=== PATIENT | female | born 1940 | race Caucasian/White ===

== ENCOUNTER 2018-12-04 19:58 | Emergency (ER) | payer MEDICARE ==
[~2018-12-04] VITALS: Ht 175.3 cm; Wt 59.0 kg
[~2018-12-04 19:58] MED LIST: Z ARMOUR THYROID PO
[2018-12-04] MEDS ORDERED: HYDROCODONE/APAP 5MG-325MG TAB ONE (20:41)
[2018-12-04] MEDS ORDERED: HYDROCODONE/APAP 10MG-325MG TAB PO ONE (20:45)
[2018-12-04] MEDS ORDERED: ACETAMINOPHEN/CODEINE 300MG - 30MG TAB PO ONE (20:45)
[2018-12-04] MEDS ORDERED: HYDROCODONE/APAP 5MG-325MG TAB PO ONE (20:45)
[2018-12-04 22:14] VITALS: BP 140/72
--- NOTE | 2018-12-04 22:17 | Diagnostic Imaging Report ---
Examination: Single AP view of the chest. COMPARISON: None. INDICATION: Status post fall IMPRESSION: 1. Lines and Tubes: Left upper chest multilead cardiac device, with distal tips projecting in the right atrium and right ventricle. 2. Lungs are grossly clear. No consolidation or effusion. 3. Cardiomediastinal silhouette is normal. Pulmonary vasculature is normal. 4. Please see dedicated right shoulder films for description of shoulder fracture. Other bony structures are intact. Signed by: Dr. Franklin Baron M.D. on 12/04/2018 10:14 PM
--- NOTE | 2018-12-04 22:18 | Diagnostic Imaging Report ---
EXAMINATION: Right shoulder series. CLINICAL HISTORY: Status post fall. COMPARISON: None. . Discussion: Generalized osteopenia, which limits evaluation of bony structures. Acute, comminuted fracture of the proximal right humerus, involving the surgical neck and greater tuberosity (three-part), with minimal displacement. The humeral head remains aligned with the glenoid.. No osteolytic or osteoblastic lesions. There is no evidence of a.c. separation. Mild degenerative changes of the glenohumeral joint. The soft tissues are normal. IMPRESSION: 1. Acute, comminuted three-part fracture of the proximal right humerus involving the surgical neck and greater tuberosity, with minimal displacement.. Signed by: Dr. Franklin Baron M.D. on 12/04/2018 10:15 PM
--- NOTE | 2018-12-04 22:20 | Diagnostic Imaging Report ---
Exam: Right elbow, 2 views History: Fall Comparison: None. Findings: There is decreased bone mineralization. No acute, displaced fracture or dislocation. Minimal degenerative changes in the elbow joint. No anterior or posterior fat pad elevation. No abnormal soft tissue calcification or soft tissue defect. No soft tissue swelling. Impression: 1. Decreased bone mineralization limits evaluation of the bony structures. No acute abnormalities, within the limitations of the study.. Signed by: Dr. Franklin Baron M.D. on 12/04/2018 10:16 PM
--- NOTE | 2018-12-04 22:21 | Diagnostic Imaging Report ---
Exam: Right humerus, 2 views History: Fall Comparison: None. Findings: Generalized osteopenia, which limits evaluation of bony structures. Acute, comminuted fracture of the proximal right humerus, involving the surgical neck and greater tuberosity (three-part), with minimal displacement. The humeral head remains aligned with the glenoid.. Resolution bony structures are intact. Mild degenerative changes in the glenohumeral joint. No abnormal soft tissue calcification or soft tissue defect. No soft tissue swelling. Impression: 1. Acute, comminuted fracture of the proximal right humerus, involving the surgical neck and greater tuberosity (three-part), with minimal displacement. Signed by: Dr. Franklin Baron M.D. on 12/04/2018 10:18 PM
== END 2018-12-04 22:24 | disposition home or self-care (01) ==
LOC: ER 19:58
DX: S42.251A Displaced fracture of greater tuberosity of right humerus, initial encounter for closed fracture (principal); W01.0XXA Fall on same level from slipping, tripping and stumbling without subsequent striking against object, initial encounter; Y93.01 Activity, walking, marching and hiking; Y92.008 Other place in unspecified non-institutional (private) residence as the place of occurrence of the external cause
CPT/HCPCS: 71045; 99283

== ENCOUNTER 2019-02-06 10:46 | Observation (INO) | payer MEDICARE ==
[~2019-02-06] VITALS: Ht 177.8 cm; Wt 59.0 kg
--- OUTSIDE RECORDS SUMMARY | 2019-02-06 10:49 | XMS REPORT ---
Author Author [facility] Address Unknown Phone Unavailable Care Team Providers Care Laborer Shaft [place]inking Name Role Phone Eddie GARCIA Unavailable Unavailable Problems This patient has no known problems. Allergies, Adverse Reactions, Alerts This patient has no known allergies or adverse reactions. Medications This patient has no known medications. Results Test Description Test Time Test Comments Text Results Atomic Results Result Comments HUMERUS RIGHT 2+VIEWS 2018-12-04 22:16:00 [place] [address] Patient Name: STEPHEN HOLLINGSWORTH MR #: [id number] : 1940 Age/Sex: 78/F Req #: [id number] Adm Physician: Ordered by: HORTENSIA TAO GRANULAR OPERATOR Report #: [id number] Location: ER Room/Bed: Procedure: [id number] DX/HUMERUS RIGHT 2+VIEWS Exam Date: 12/04/18 Exam Time: 2119 REPORT STATUS: Signed Exam: Right humerus, 2 views History: Fall Comparison: None. Findings: Generalized osteopenia, which limits evaluation of bony structures. Acute, comminuted fracture of the proximal right humerus, involving the surgical neck and greater tuberosity (three- part), with minimal displacement. The humeral head remains aligned with the glenoid.. Resolution bony structures are intact. Mild degenerative changes in the glenohumeral joint. No abnormal soft tissue calcification or soft tissue defect. No soft tissue swelling. Impression: 1. Acute, comminuted fracture of the proximal right humerus, involving the surgical neck and greater tuberosity (three-part), with minimal displacement. Signed by: Dr. Kortney Baron M.D. on 12/04/2018 10:18 PM Dictated By: KORTNEY BARON MD 17 Transcribed By: SHEREE on 12/04/182217 COPY TO: HORTENSIA TAO NP ELBOW RIGHT COMPLETE 2018-12-04 22:15:00 [place] [address] Patient Name: STEPHEN HOLLINGSWORTH MR #: [id number] : 1940 Age/Sex: 78/F Req #: [id number] Adm Physician: Ordered by: HORTENSIA TAO NP Report #: [id number] Location: ER Room/Bed: Procedure: [id number] DX/ELBOW RIGHT COMPLETE Exam Date: 12/04/18 Exam Time: 2119 REPORT STATUS: Signed Exam: Right elbow, 2 views History: Fall Comparison: None. Findings: There is decreased bone mineralization. No acute, displaced fracture or dislocation. Minimal degenerative changes in the elbow joint. No anterior or posterior fat pad elevation. No abnormal soft tissue calcification or soft tissue defect. No soft tissue swelling. Impression: 1. Decreased bone mineralization limits evaluation of the bony structures. No acute abnormalities, within the limitations of the study.. Signed by: Dr. Kortney Baron M.D. on 12/04/2018 10:16 PM Dictated By: KORTNEY BARON MD 15 Transcribed By: SHEREE on 12/04/182215 COPY TO: HORTENSIA TAO NP SHOULDER RIGHT COMPLETE 2018-12-04 22:14:00 [facility] [address] [place] [address] Patient Name: STEPHEN HOLLINGSWORTH MR #: [id number] : 1940 Age/Sex: 78/F Req #: [id number] Adm Physician: Ordered by: HORTENSIA TAO NP Report #: [id number] Location: ER Room/Bed: Procedure: [id number] DX/SHOULDER RIGHT COMPLETE Exam Date: 12/04/18 Exam Time: 2119 REPORT STATUS: Signed EXAMINATION: Right shoulder series. CLINICAL HISTORY: Status post fall. COMPARISON: None. . Discussion: Generalized osteopenia, which limits evaluation of bony structures. Acute, comminuted fracture of the proximal right humerus, involving the surgical neck and greater tuberosity (three-part), with minimal displacement. The humeral head remains aligned with the glenoid.. No osteolytic or osteoblastic lesions. There is no evidence of a.c. separation. Mild degenerative changes of the glenohumeral joint. The soft tissues are normal. IMPRESSION: 1. Acute, comminuted three-part fracture of the proximal right humerus involving the surgical neck and greater tuberosity, with minimal displacement.. Signed by: Dr. Kortney Baron M.D. on 12/04/2018 10:15 PM Dictated By: KORTNEY BARON MD 14 Transcribed By: SHEREE on 12/04/182214 COPY TO: HORTENSIA TAO NP CHEST SINGLE (NOT PORTABLE) 2018-12-04 22:12:00 [facility] [address] [place] [address] Patient Name: STEPHEN HOLLINGSWORTH MR #: [id number] : 1940 Age/Sex: 78/F Req #: [id number] [facility] Physician: Ordered by: HORTENSIA TAO NP Report #: [id number] Location: ER Room/Bed: Procedure: [id number] DX/CHEST SINGLE (NOT PORTABLE) Exam Date: 12/04/18 Exam Time: 2119 REPORT STATUS: Signed Examination: Single AP view of the chest. CO MPARISON: None. INDICATION: Status post fall IMPRESSION: 1. Lines and Tubes: Left upper chest multilead cardiac device, with distal tips projecting in the right atrium and right ventricle. 2. Lungs are grossly clear. No consolidation or effusion. 3. Cardiomediastinal silhouette is normal. Pulmonary vasculature is normal. 4. Please see dedicated right shoulder films for description of shoulder fracture. Other bony structures are intact. Signed by: Dr. Kortney Baron M.D. on 12/04/2018 10:14 PM Dictated By: KORTNEY BARON MD 13 Transcribed By: SHEREE on 12/04/182213 COPY TO: HORTENSIA TAO NP
[2019-02-06 11:37] LABS: BASOPHILS % 0.4 % (0.0-1.0); EOSINOPHILS # (AUTO) 0.1 (0.0-0.4); EOSINOPHILS % 1.7 % (0.0-6.0); HEMATOCRIT 43.8 % (34.2-44.1); LYMPHOCYTES # (AUTO) 1.1 (1.0-3.2); LYMPHOCYTES % 13.7 % (18.0-39.1); MEAN CORPUSCULAR HEMOGLOBIN 30.1 pg (28-32); MEAN CORPUSCULAR VOLUME 94.2 fL (81-99); MONOCYTES # (AUTO) 0.5 (0.2-0.8); MONOCYTES % 5.6 % (4.4-11.3); NEUTROPHILS # (AUTO) 6.3 (2.1-6.9); NEUTROPHILS % 78.1 % (38.7-80.0); PLATELET COUNT 215 x10e3/uL (140-360); RED BLOOD COUNT 4.65 x10e6/uL (3.6-5.1); RED CELL DISTRIBUTION WIDTH 13.9 % (11.7-14.4)
--- NOTE | 2019-02-06 11:38 | Diagnostic Imaging Report ---
History:Dizziness Comparison studies: None Technique: Axial images were obtained from the skull base to the vertex. Coronal and sagittal images reconstructed from the axial data. Dose modulation, iterative reconstruction, and/or weight based adjustment of the mA/kV was utilized to reduce the radiation dose to as low as reasonably achievable. Intravenous contrast: None Findings: Scalp/skull: No abnormalities. Extra-axial spaces: No masses. No fluid collections. Brain sulci: Mildly prominent. Ventricles: Mild compensatory dilatation. No hydrocephalus. Parenchyma: Subtle hypodensities in the supratentorial white matter are small vessel ischemic changes. No masses, hemorrhage, acute or chronic cortical vascular insults. Sellar/suprasellar region: No abnormalities. Craniocervical junction: Patent foramen magnum. No Chiari one malformation. Incidental findings: Atherosclerotic calcifications in the carotid siphons . Impression: No acute abnormalities. Chronic findings: 1. Mild generalized volume loss. 2. Mild supratentorial white matter small vessel ischemic changes. Signed by: Dr. Chriss Hutchison M.D. on 02/06/2019 11:35 AM
[2019-02-06 11:51] LABS: ALBUMIN 3.9 g/dL (3.5-5.0); ALBUMIN/GLOBULIN RATIO 1.4 (0.8-2.0); ANION GAP 13.8 mmol/L (8-16); CREATININE, SERUM 1.07 mg/dL (0.57-1.11); POTASSIUM 3.8 mmol/L (3.5-5.1)
[2019-02-06 12:00] LABS: CREATINE KINASE MB 1.7 ng/mL (0-5.0); INR 0.92; PROTHROMBIN TIME 12.8 seconds (11.9-14.5)
[2019-02-06 12:01] LABS: PARTIAL THROMBOPLASTIN TIME 26.2 seconds (23.8-35.5)
[2019-02-06 12:04] LABS: BILIRUBIN,URINE NEGATIVE (NEGATIVE); CLARITY,URINE CLEAR (CLEAR); COLOR,URINE YELLOW (YELLOW); KETONES,URINE NEGATIVE (NEGATIVE); LEUKOCYTE ESTERASE ,URINE NEGATIVE (NEGATIVE); NITRITE,URINE NEGATIVE (NEGATIVE); PROTEIN,URINE DIPSTICK NEGATIVE (NEGATIVE); URINE UROBILINOGEN 0.2 mg/dL (0.2 - 1)
[2019-02-06 12:11] LABS: AMPHETAMINES SCREEN,URINE NEGATIVE (NEGATIVE); BENZODIAZEPINES SCREEN,URINE NEGATIVE (NEGATIVE); PHENCYCLIDINE SCREEN,URINE NEGATIVE (NEGATIVE)
[2019-02-06 12:22] LABS: AMORPHOUS SEDIMENT,URINE MANY (FEW); BACTERIA,URINE MODERATE /HPF; EPITHELIAL CELLS,URINE FEW /LPF; RBC,URINE 0-5 /HPF (0-5); WBC,URINE (MAN) 0-5 /HPF (0-5)
[2019-02-06] MEDS ORDERED: SODIUM CHLORIDE 0.9% 1000ML 1,000 ML IV ONE (12:30)
[2019-02-06] MEDS: ONDANSETRON HCL INJ 2MG/ML 2ML 2 MG/ML VIAL IV PRN (12:49)
[2019-02-06] MEDS ORDERED: ASPIRIN 325 MG TAB EC PO ONE (13:00)
--- NOTE | 2019-02-06 16:53 | NUR ---
received to rm [id number] no distress noted, updated on poc voiced understanding, pt ambulated to bathroom and back to bed with assistance,r fa 20g no ss of infiltration noted, r arm sling noted (per patient arm was fx x 2 months ago tripped by a dog), no other co voiced, bed low/locked position, call light in reach will continue to monitor
[2019-02-06 17:03] VITALS: BP 181/95
[2019-02-06] MEDS ORDERED: NEBIVOLOL (17:33)
[2019-02-06] MEDS ORDERED: TYLENOL WITH C1 EACH PO (17:33)
[2019-02-06] MEDS ORDERED: ATIVAN0.5 MG PO (17:33)
[2019-02-06] MEDS ORDERED: ASPIR 8181 MG PO (17:33)
[2019-02-06 17:44] VITALS: BP 149/75
[2019-02-06 17:52] VITALS: BP 149/75
[2019-02-06] MEDS: ACETAMINOPHEN/CODEINE 300MG - 30MG TAB PO PRN (18:43)
[2019-02-06 19:52] LABS: CREATINE KINASE MB 1.5 ng/mL (0-5.0)
[2019-02-06 20:00] VITALS: BP 157/65
--- NOTE | 2019-02-06 20:00 | NUR ---
INITIAL ASSESSMENT COMPLETE, RIGHT ARM UP IN SLING, PT HERE FOR CONFUSION AND POSSIBLE TIA BUT ARM IS WHAT IS BOTHERING HER THE MOST, VS STABLE, CALL LIGHT IN REACH, NO OTHER NEEDS, ORIENTED TO PLACE, TIME AND PERSON
[2019-02-07] VITALS (8 sets, daily range): BP systolic 136–177; BP diastolic 67–94
[2019-02-07] MEDS: ACETAMINOPHEN/CODEINE 300MG - 30MG TAB PO PRN ×3 (02:07→13:25)
[2019-02-07] MEDS ORDERED: LORAZEPAM 0.5 MG TAB PO PRN (06:00)
--- NOTE | 2019-02-07 06:01 | NUR ---
H7P cc: difficulty speaking HPI: 78yoF, PCP , developed difficulty speaking and difficulty with memory. No focal weakness. Pt did fall in November with resulting right arm injury now in sling. PMH: HTN, CAD s/p stent x2 in 2012, right arm fracture in 11/2018, Elderly fall PSHx: appendectomy, , tubal ligation, coronary stent ALleriges; see emr FH/SH; single; no cigs; lives alone Meds; see MAR ROS; no cp/sob/dizziness/vision changes/skin rash/back pain/N/V/D/mood change v/s revd PE tired anicteric ns1s2 mod bs soft nt nd no e/t skin dry n. affect labs/meds revd A/P: 78yoF CANDELARIO TIA UTI Hypothyroidism Physical deconditionig PLAN Unable to get MRI; check CTA brain; Treat UTI with IV abx IVF ASA/lipid panel SCD/pepcid PT consult Dispo: d/w son by telephone. Treat UTI; rehydrate; f/u CTA. Kam Connell MD, PhD.
[2019-02-07 06:14] LABS: BASOPHILS % 0.3 % (0.0-1.0); EOSINOPHILS # (AUTO) 0.2 (0.0-0.4); EOSINOPHILS % 2.3 % (0.0-6.0); HEMATOCRIT 37.7 % (34.2-44.1); HEMOGLOBIN 11.9 g/dL (12.0-16.0); LYMPHOCYTES # (AUTO) 2.2 (1.0-3.2); LYMPHOCYTES % 27.7 % (18.0-39.1); MEAN CORPUSCULAR HEMOGLOBIN 30.1 pg (28-32); MEAN CORPUSCULAR HGB CONC 31.6 g/dL (31-35); MEAN CORPUSCULAR VOLUME 95.4 fL (81-99); MONOCYTES # (AUTO) 0.8 (0.2-0.8); MONOCYTES % 10.6 % (4.4-11.3); NEUTROPHILS # (AUTO) 4.6 (2.1-6.9); NEUTROPHILS % 58.8 % (38.7-80.0); PLATELET COUNT 200 x10e3/uL (140-360); RED BLOOD COUNT 3.95 x10e6/uL (3.6-5.1); RED CELL DISTRIBUTION WIDTH 13.7 % (11.7-14.4)
[2019-02-07] MEDS ORDERED: SODIUM CHLORIDE 0.45% 1,000 ML IV ONE (06:15)
[2019-02-07] MEDS: THYROID 60 MG TAB PO SCH (06:16)
[2019-02-07 06:49] LABS: CREATINE KINASE 23 IU/L (29-168)
--- NOTE | 2019-02-07 07:06 | NUR ---
Received patient lying in bed with eyes open. Respiration even and unlabored without SOB. Call light in reach.
[2019-02-07 07:20] LABS: ALANINE AMINOTRANSFERASE 18 IU/L (0-55); ALBUMIN 3.2 g/dL (3.5-5.0); ALBUMIN/GLOBULIN RATIO 1.3 (0.8-2.0); ALKALINE PHOSPHATASE 79 IU/L (40-150); BLOOD UREA NITROGEN 25 mg/dL (7-26); BUN/CREATININE RATIO 31 (6-25); CALCIUM 9.1 mg/dL (8.4-10.2); CARBON DIOXIDE 27 mmol/L (22-29); CHLORIDE 107 mmol/L (98-107); EST GLOMERULAR FILTRATION RATE > 60 ML/MIN (60-); GLUCOSE 89 mg/dL (74-118); SODIUM 142 mmol/L (136-145)
[2019-02-07 07:36] LABS: CHOL/HDL RATIO 6.1 (3.0-3.6)
[2019-02-07] MEDS: FAMOTIDINE 20 MG TAB PO SCH ×2 (07:50→17:37)
[2019-02-07] MEDS: ASPIRIN 81 MG ENTERIC COATED PO SCH (07:51)
[2019-02-07] MEDS: CEFTRIAXONE SOD 1 GM/NS 50 ML 50 ML IV SCH (07:51)
--- NOTE | 2019-02-07 11:15 | NUR ---
ASSESSMENT: Spiritual concern Pt frustrated in communicating. Pt struggled to come up with words she wanted to say. Pt states family has been supportive. Intervention: Provided unhurried empathic listening. Provided information on how to reach baseball pitcher, if needed. Outcome: Pt expressed appreciation for visit. MORA DOE Administrative Dietitian Spiritual Care Department O: [phone] Pager: [phone] ([phone] number calling from)
[2019-02-07] MEDS ORDERED: SODIUM CHLORIDE 0.9% 100 ML ONE (14:30)
[2019-02-07] MEDS ORDERED: IOPAMIDOL 370 MG/ML 200 ML INFUS..BTL INJ ONE (14:31)
--- NOTE | 2019-02-07 14:50 | NUR ---
Notified Dr. Connell about CTA brain unabled to get done because of poor peripheral vein acces. Ordered given to insert PICC line.
--- NOTE | 2019-02-07 17:02 | NUR ---
Patient is transported for CTA brain at this time.
--- NOTE | 2019-02-07 18:27 | Diagnostic Imaging Report ---
CTA BRAIN HISTORY: Confusion COMPARISON: Head CT 02/06/2019 TECHNIQUE: CTA of the head was performed with intravenous iodine based contrast. Coronal, sagittal, and 3-D reformations were created. One or more of the following dose reduction techniques were used: Automated exposure control, adjustment of the mA and/or kV according to patient size, and/or utilization of iterative reconstruction technique. DISCUSSION: Carotid arteries: Minimal bilateral carotid siphon calcifications are present without significant stenosis. Moderate to severe focal stenosis in the left middle cerebral artery distal M1 segment (at the bifurcation) is age indeterminate. There is subtle, asymmetric decreased filling of the distal left middle cerebral artery branches. Collateral vessels are seen along the bilateral cerebral convexities. No abnormalities in the bilateral A1 or right M1 segments. Vertebrobasilar Circulation: Right vertebral artery: Patent, no abnormalities. Left vertebral artery: Patent, no abnormalities. Basilar artery: Patent, no abnormalities. Posterior cerebral arteries: Patent, no abnormalities. Normal Variants: ACom: Patent. PComs: Not visualized. Vertebral arteries: Co-dominant. The major dural venous sinuses are grossly patent. Additional findings: Bilateral ocular lens replacement. Subtle, focal asymmetric hypodensity in the left centrum semiovale may be due to age indeterminate watershed ischemia. IMPRESSION: 1. 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 There is subtle, asymmetric decreased filling of the distal left middle cerebral artery branches. Collateral vessels are seen along the bilateral cerebral convexities. 2. Minimal bilateral carotid siphon calcification without significant stenosis. 3. No other intracranial CTA abnormalities. 4. Subtle, focal asymmetric hypodensity in the left centrum semiovale may be due to age indeterminate watershed ischemia. Signed by: Dr. Francisco Montano M.D. on 02/07/2019 6:24 PM
--- NOTE | 2019-02-07 19:15 | NUR ---
Report given to night nurse. Respiration even and unlabored without SOB. Call light in reach. Family members at bedside.
[2019-02-07] MEDS ORDERED: ATORVASTATIN 40 MG TAB PO SCH (21:00)
[2019-02-07] MEDS ORDERED: ATORVASTATIN 20 MG TAB PO SCH (21:00)
[2019-02-07] MEDS ORDERED: ASPIRIN 81 MG CHEW TAB PO SCH (21:00)
--- NOTE | 2019-02-07 21:36 | NUR ---
Patient refused bed alarm on, side rails up and SCD's applied.
[2019-02-08] VITALS: BP 164/70
--- NOTE | 2019-02-08 00:19 | Consultation ---
DATE OF CONSULTATION: 02/07/2019 Neurology Consult Note HISTORY OF PRESENT ILLNESS: Ms. Alejandre is an 78-year-old right-hand dominant woman with past medical history significant for hypertension and coronary artery disease, admitted to [facility] under observation status on February 06, 2019, with symptoms suspicious for a stroke. The patient awoke at 0800 on the day of admission with dysarthria and expressive aphasia. Ms. Alejandre does not report a visual field cut or other disturbance, receptive aphasia, facial droop, hemiparesis, or hemihypesthesia associated with the above symptoms. The patient does report poor balance and impairment of gait, but these appear to be chronic. Ms. Alejandre does report dizziness, which cannot be further described and mild confusion associated with the above symptoms as well. On the morning of admission, the patient's eldest son arrived at her home to take her to [employer]. After hearing his mother's speak, he brought her to the emergency center at [facility] for further evaluation of her symptoms. Upon arrival in the emergency center, the patient was afebrile with a blood pressure of 182/82 mmHg and a pulse of 75 beats per minute. The patient's neurological examination was reportedly nonfocal. According to both the patient and her son, Ms. Alejandre's symptoms improved while in the emergency center, but subsequently worsened once again after a few hours. While in the emergency center, Ms. Alejandre underwent a CT of the brain without contrast, which did not show evidence of recent large territorial ischemia or hemorrhage. Ms. Alejandre was subsequently admitted to [facility] under observation status for further evaluation and treatment of her symptoms. Ms. Alejandre does not report experiencing similar symptoms previously. She does not report a severe headache associated with the above symptoms. Ms. Alejandre does endorse compliance with her home medication of aspirin 81 mg by mouth daily. REVIEW OF SYSTEMS: Confusion, dysarthria, expressive aphasia, impairment of balance and gait, and dizziness. Otherwise, a 12-point review of systems is negative. PAST MEDICAL HISTORY: Hypertension, coronary artery disease, thyroid disease, anxiety disorder, and symptomatic bradycardia. PAST SURGICAL HISTORY: Cardiac catheterization with stent placement x2, pacemaker placement, tonsillectomy, appendectomy/ section, total hysterectomy, and bilateral cataract removal. PAST HOSPITALIZATIONS: Surgeries/procedures as listed, childbirth x4. FAMILY MEDICAL HISTORY: The patient's father is from coronary artery disease. Ms. Alejandre's mother is from a ruptured abdominal aneurysm. Ms. Alejandre has three siblings, two brothers and one sister. One brother is . His only known history was diabetes mellitus. One brother is alive and has chronic obstructive pulmonary disease. The patient's sister is alive and has diabetes mellitus with end-stage renal disease. Ms. Alejandre has four sons, all of whom are alive and healthy. SOCIAL HISTORY: Ms. Alejandre is a . She is retired. The patient does not report current or prior tobacco, alcohol, or recreational drug use. HOME MEDICATIONS: Aspirin 81 mg by mouth daily, Bystolic 5 mg by mouth as needed for tachycardia, [place] Thyroid 180 mg by mouth daily, lorazepam 0.5 mg by mouth twice daily as needed for anxiety, acetaminophen with codeine 300 mg by mouth every 4 hours as needed for pain. HOSPITAL MEDICATIONS: Tylenol No. 3, ceftriaxone, Pepcid, lorazepam, Zofran, thyroid medication, and aspirin. ALLERGIES: NO KNOWN DRUG ALLERGIES. NO KNOWN FOOD ALLERGIES. NO KNOWN ALLERGIES TO LATEX. NO KNOWN ALLERGIES TO IODINE OR OTHER CONTRAST MATERIALS. PHYSICAL EXAMINATION: VITAL SIGNS: Height 70 inches, weight 130 pounds, BMI 18.7 kg/m2, blood pressure 155/75 mmHg, pulse 64 beats per minute, respiratory rate 18 breaths per minute, and oxygen saturation 98% on room air. GENERAL: The patient is awake and alert, does not appear distressed. Normal body habitus. HEENT: Normocephalic, atraumatic. Pupils are surgical. Moist mucous membranes. NECK: Supple. No appreciable thyromegaly. No appreciable carotid bruits. CARDIOVASCULAR: S1, S2, regular rate and rhythm. No murmurs, rubs, or gallops. RESPIRATORY: Clear to auscultation bilaterally. No wheezes, rhonchi, or rales. EXTREMITIES: Skin is warm and dry. No clubbing, cyanosis, or edema. The posterior tibial and dorsalis pedis pulses are 2+ and symmetric. The right arm is in a sling. SKIN: The patient has multiple ecchymoses and abrasions over both arms and both legs. NEUROLOGIC: Memory/Attention: The patient is awake and alert, oriented to person, place, time, and situation. Cranial Nerves: Cranial nerve I - not tested. Cranial nerve II, III, IV, and - pupils are surgical. Extraocular movements are intact. No nystagmus. Cranial nerve V - sensation is intact to light touch and pinprick over the bilateral V1 through V3 distributions. Strength of the masseter and temporalis muscles are within normal limits. Cranial nerve VII - the face is subtly asymmetric on the right, but facial movements are not. Strength appears to be within normal limits. Cranial nerve VIII - hearing is diminished to finger rub bilaterally. Cranial nerve IX, X - the soft palate elevates equally and symmetrically. Cranial nerve XI - normal strength of the bilateral sternocleidomastoid and trapezius muscles. Cranial nerve XII - the tongue protrudes midline and moves symmetrically from [id number]-[id number]. Strength: Bulk is normal. Strength is 5/5 in the left deltoid, biceps, triceps, wrist flexors and extensors, finger flexors and extensors, intrinsic hand muscles, bilateral hip flexors, knee flexors and extensors, ankle dorsiflexion and plantar flexion, and intrinsic foot muscles. Right arm flexors are 4+/5. Right arm extensors are 4/5. Tone is normal. DTRs: Deep tendon reflexes are 2+ and symmetric at the triceps, biceps, brachioradialis, and patellas. Deep tendon reflexes are absent and symmetric at the Achilles. Plantar responses are flexor bilaterally. Sensation: Sensation is intact to light touch and pinprick in both arms and both legs. Cerebellar: Xitwbo-lmdy-vvyvvk and heel-bishop movements are intact without dysmetria or other impairment except as follows: The right arm cannot be assessed secondary to pain. Gait: Deferred. Speech: Spontaneous speech is moderately dysarthric with moderate expressive aphasia. Receptive aphasia is not appreciated; the patient consistently follows simple and complex commands. Repetition is intact. Positive word substitution. Involuntary movements: None. Pronator Drift: As per motor exam. LABORATORY DATA: The most recent comprehensive metabolic panel is significant for a total protein of 5.6 and albumin of 3.2. Cardiac enzymes are negative x3. Total cholesterol 183, triglycerides 159, LDL cholesterol 121, and HDL cholesterol 30. The CBC with differential and platelets reveals a white blood cell count of 7.80 with a normal differential. The hemoglobin and hematocrit are 11.9 and 37.7, respectively. The platelet count is 200. A coagulation profile is within normal limits. A quantitative D-dimer was elevated at 5.37. A urinalysis collected on February 06, 2019, revealed moderate urine bacteria with few urine epithelial cells. A urine drug screen was positive for opiates. A urine culture is pending. DIAGNOSTIC STUDIES: Electrocardiogram on 02/06/2019: Sinus rhythm at 83 beats per minute with frequent premature ventricular complexes and premature atrial complexes. CT of the brain without contrast on 02/06/2019: On my review, there is no evidence of recent or remote large territorial ischemia, hemorrhage, mass, or mass effect. There is mild diffuse cerebral atrophy with compensatory dilatation of the ventricles, appropriate for the patient's age. Their findings compatible with mild chronic small-vessel ischemic disease. Echocardiogram on 02/07/2019: Ejection fraction 45% to 50%. Trace tricuspid regurgitation. Mild mitral regurgitation. Bilateral carotid artery ultrasound with Doppler on 02/07/2019: There is no atherosclerosis in either carotid artery system. Flow is antegrade in the bilateral vertebral arteries. CTA of the brain without contrast on 02/07/2019: There is a subtle focal asymmetric hypodensity in the left centrum semiovale compatible with age-indeterminate ischemia. There is fligevzd-gd-dtxpeo focal stenosis in the left middle cerebral artery distal M1 segment. There is subtle asymmetric decreased filling of the distal left middle cerebral artery branches. Collateral vessels are seen along the bilateral cerebral convexities. ASSESSMENT AND PLAN: Ms. Alejandre is an 78-year-old right-hand dominant woman with multiple vascular risk factors, admitted to [facility] under observation status on February 06, 2019, with an ischemic stroke in the left middle cerebral artery distribution-anterior division. The patient's neurological examination is significant for moderate dysarthria, moderate expressive aphasia, and mild weakness of the right arm. The patient's laboratory data and other diagnostic studies have been reviewed and are documented above. RECOMMENDATIONS: Are as follows: 1. A hemoglobin A1c will be ordered to complete stroke evaluation. 2. The patient experienced an ischemic stroke while taking aspirin 81 mg by mouth daily. This indicates aspirin is not an adequate anti-platelet medication for Ms. Alejandre. Therefore, treatment with aspirin will be continued and replaced by Plavix 75 mg by mouth daily for stroke prophylaxis. 3. The patient's goal blood pressure is less than 140/90 mmHg. Amlodipine 5 mg by mouth daily will be prescribed. Monitor vital signs per unit protocol. 4. The patient's goal total cholesterol is less than 200 with an LDL of less than 70. Ms. Alejandre will be prescribed atorvastatin 40 mg by mouth at bedtime daily. A lipid panel should be rechecked in 8 weeks. 5. The patient's goal hemoglobin A1c is less than 7.0. Follow up the results of the hemoglobin A1c. Tight glycemic control is recommended while the patient is hospitalized. 6. Physical Therapy has evaluated the patient and determine she has no needs. A speech therapy consultation will be ordered. 7. GI prophylaxis with Pepcid 20 mg by mouth twice daily with meals. DVT prophylaxis with Lovenox 40 mg subcutaneously daily. 8. Continue intravenous antibiotics for a probable urinary tract infection. Follow up the urine culture results. 9. Defer treatment of the remaining medical comorbidities to the primary and other services following the patient. 10. Anticipated disposition: Home with speech therapy through Home Health in 1- 2 days. A case management consultation has been ordered, so speech therapy through home health may be arranged prior to the patient's discharge. Thank you for this consultation. I will continue to follow the patient while she remains in the hospital. TIME SPENT: 70 minutes. Ladonna Piper MD CP/PHILLIP /[id number] YULIET
[2019-02-08 04:00] VITALS: BP 145/67
[2019-02-08] MEDS: THYROID 60 MG TAB PO SCH (05:33)
[2019-02-08] MEDS ORDERED: FAMOTIDINE20 MG PO (05:53)
[2019-02-08] MEDS ORDERED: PLAVIX75 MG PO (05:53)
[2019-02-08] MEDS ORDERED: NIFEDIPINE ER30 M1 PO (05:53)
[2019-02-08] MEDS ORDERED: Atorvastatin PO (05:53)
[2019-02-08] MEDS ORDERED: KEFLEX500 MG PO (05:55)
--- NOTE | 2019-02-08 05:56 | NUR ---
D/C Summary Principal Dx: Expressive Aphasia Dysarthrita CANDELARIO TIA UTI Secondary Dx: Hypothyroidism Physical deconditionig PLAN Unable to get MRI; check CTA brain; Treat UTI with IV abx IVF ASA/lipid panel SCD/pepcid PT consult Dispo: d/w son by telephone. Treat UTI; rehydrate; f/u CTA. d/c home with PT stable d/c>35mins f/u pcp 1 week and neurology clinic 2 weeks Kam Connell MD, PhD.
[2019-02-08] MEDS ORDERED: NIFEDIPINE CR 30 MG TAB PO SCH (06:00)
[2019-02-08 08:31] VITALS: BP 178/84
[2019-02-08] MEDS ORDERED: CLOPIDOGREL BISULFATE 75 MG TAB PO SCH (09:00)
[2019-02-08] MEDS ORDERED: AMLODIPINE BESYLATE 5 MG TAB PO SCH (09:00)
[2019-02-08 09:26] VITALS: BP 178/84
[2019-02-08] MEDS: ONDANSETRON HCL INJ 2MG/ML 2ML 2 MG/ML VIAL IV PRN (09:52)
[2019-02-08] MEDS: FAMOTIDINE 20 MG TAB PO SCH (10:11)
[2019-02-08] MEDS: ASPIRIN 81 MG ENTERIC COATED PO SCH (10:11)
[2019-02-08] MEDS: CEFTRIAXONE SOD 1 GM/NS 50 ML 50 ML IV SCH (10:11)
[2019-02-08] MEDS: ACETAMINOPHEN/CODEINE 300MG - 30MG TAB PO PRN (10:12)
--- NOTE | 2019-02-08 10:30 | NUR ---
SPEECH WORKING WITH PT AT THIS TIME.
--- NOTE | 2019-02-08 10:46 | NUR ---
received order for home health. In network is [facility]. Patient chooses [facility]. Signed choice for them. Explained MTZ to patient, patient signed, placed in chart, copy to patient
[2019-02-08 12:19] VITALS: BP 140/62
[2019-02-08 16:22] VITALS: BP 139/64
[2019-02-08] MEDS ORDERED: ENOXAPARIN SOD INJ 40 MG/0.4 ML SYR SC SCH (17:00)
--- NOTE | 2019-02-08 17:15 | NUR ---
PT DISCHARGED HOME WITH HER SON, MEDICATION WERE EXPLAINED, HE VERBALIZED UNDERSTANDING .PT IV SITE REMOVED NO SWELLING NO REDNESS TO SITE.
[2019-02-09] MEDS ORDERED: NIFEDIPINE CR 30 MG TAB PO SCH (09:00)
== END 2019-02-08 17:20 | disposition home health service (06) ==
LOC: ER 10:46 → INTOOBSV 12:19 → ERHOLD 12:19 → MED/SURG 16:56
PROVIDERS: ADMIT Internal Medicine; ATTEND Internal Medicine
DX: I63.512 Cerebral infarction due to unspecified occlusion or stenosis of left middle cerebral artery (principal); I10 Essential (primary) hypertension; I25.10 Atherosclerotic heart disease of native coronary artery without angina pectoris; R47.1 Dysarthria and anarthria; G83.21 Monoplegia of upper limb affecting right dominant side; Z95.5 Presence of coronary angioplasty implant and graft; N17.9 Acute kidney failure, unspecified; N39.0 Urinary tract infection, site not specified; E03.9 Hypothyroidism, unspecified; R53.81 Other malaise
CPT/HCPCS: 36000; 36415 ×2; 70450; 70496; 80053 ×2; 80061; 80307; 81001; 82550 ×2; 82553 ×2; 83036; 84484 ×2; 85025 ×2; 85379; 85610; 85730; 87086; 92523; 93005; 93306; 93880; 97116; 97161; 99284; G0378 ×3; J0696 ×2; J2405 ×2; J7030; J7050; Q9967

== ENCOUNTER → 2019-02-16 | Outpatient (CLI) | payer MEDICARE ==
[~2019-02-16] MED LIST changes: +ASPIR 8181 MG PO; +ATIVAN0.5 MG PO; +Atorvastatin PO; +FAMOTIDINE20 MG PO; +IOPAMIDOL 370 MG/ML 200 ML INFUS..BTL INJ ONE; +KEFLEX500 MG PO; +NEBIVOLOL; +NIFEDIPINE ER30 M1 PO; +NITROGLYCERIN 0.4 MG SUBL ONE; +PLAVIX75 MG PO; +SODIUM CHLORIDE 0.9% 100 ML ONE; +SODIUM CHLORIDE 0.9% 500ML 500 ML ONE; +TYLENOL WITH C1 EACH PO
[2019-02-16 11:36] LABS: CREATININE, SERUM 1.02 mg/dL (0.57-1.11)
--- NOTE | 2019-02-17 13:08 | Diagnostic Imaging Report ---
EXAM: CORONARY CTA INDICATION: ^[id number] ^[id number] ^CHEST PAIN COMPARISON: None. TECHNIQUE: Multi-detector CT technology was employed (64 MDCT [employer]). Minimal slice thickness with retrospective gating was performed following the intravenous administration of contrast material. The patient was premedicated with 0.4 mg sublingual nitroglycerin for coronary dilation. No beta jero were administered. IV CONTRAST: 100 mL of Isovue 370 ORAL CONTRAST: None COMPLICATIONS: None RADIATION DOSE: Total DLP: 2017.6 mGy*cm Estimated effective dose: (DLP x 0.015 x size factor) mSv CTDIvol has been reviewed. It is below the limits set by the Radiation Protocol Committee (RPC). For optimization of anatomic evaluation, multiplanar reconstruction, maximum intensity projections, and advanced 3-D off-line postprocessing were performed on a dedicated stand-alone workstation under the direct supervision of the interpreting physician. QUALITY: Good despite motion artifact from pacemaker. FINDINGS: TUBES AND LINES: 2-lead pacemaker device in the left upper chest with leads in the right atrial appendage and right ventricle. CORONARY ANATOMY: There is normal origin of the coronary arteries. Left Main Coronary Artery: The left main is normal sized vessel that bifurcates into the LAD and circumflex. There is no evidence of atherosclerotic changes or stenotic disease. Left Anterior Descending Coronary Artery: The LAD is a normal size vessel that wraps around the apex. It gives rise to 2 acute diagonal branches. Mixed calcified and noncalcified plaque in the proximal LAD, 5 mm from its origin results in moderate stenosis (50-69%). There is a metallic stent in the mid LAD which appears patent but associated with diffuse intimal proliferation resulting in diffuse luminal diameter of 2 mm. Distal to the stent, the remaining LAD is small in size but patent without significant atherosclerotic disease. Left Circumflex Coronary Artery: The LCX is a normal size vessel, which is non-dominant. It gives rise to 2 obtuse marginal branches. Calcified plaque in the proximal first obtuse marginal branch results in mild stenosis (25-49%). Mixed plaque in the proximal LCx results in moderate stenosis (50-69 %). Distal LCx is patent without significant atherosclerosis disease. Right Coronary Artery: The RCA is a normal size vessel, which is dominant. It gives rise to a conus branch, AV isamar branch, and 2 acute marginal branches. In its distal segment it bifurcates into the PDA and PV branch. Severe motion artifact throughout the RCA limits its evaluation. The most proximal segment is widely patent. The mid and distal segments are almost nondiagnostic. However, there appears to be diffuse mild intimal proliferation throughout the mid RCA stent. Distal RCA and PDA are widely patent without atherosclerotic disease. CARDIAC MORPHOLOGY AND FUNCTION: Mild cardiomegaly. LIMITED CHEST: Limited views of the visualized chest show no abnormality within chest wall and mediastinum. Multiple nonspecific noncalcified subcentimeter lymph nodes with the largest measuring 0.7 cm in the AP window on series 2, image 64. Mild linear scarring in both lung bases. Moderate calcified and noncalcified atherosclerotic changes of the visualized thoracic aorta. The visualized segments of the thoracic aorta is normal in size. The main pulmonary artery normal in caliber measuring 2.5 cm in diameter. LIMITED ABDOMEN: Severe atrophy of the left kidney. BONES: Mild multilevel degenerative changes of the visualized thoracic spine. IMPRESSION: Motion and pacemaker related artifact limits evaluation of several segments of the coronary arteries. 1. Normal coronary anatomy. 2. Focal moderate stenosis of the proximal LAD (50-69%). Patent stent in the mid LAD with associated diffuse mild myointimal proliferation resulting in luminal diameter of 2 mm and unable to establish degree of stenosis. 3. Focal moderate stenosis of the proximal LCx (50-69%). 4. Severe motion artifact limits evaluation of the RCA, however the most proximal segment as well as the distal segment and PDA are widely patent without atherosclerotic disease. Evaluation of the stent is very limited but appears patent with associated mild diffuse myointimal proliferation. Correlation with functional stress test results is recommended. If precise assessment of luminal stenosis is clinically indicated, cardiac catheterization is recommended. Reference: [email or web address] Signed by: Dr. Cathy Corona M.D. on 02/17/2019 1:05 PM
== END ==
LOC: CT 10:16
PROVIDERS: ATTEND Internal Medicine
DX: R07.9 Chest pain, unspecified (principal)
CPT/HCPCS: 36415; 75574; 82565; 84520; J7040; J7050; Q9967

== ENCOUNTER → 2022-06-12 | Outpatient (CLI) | payer MEDICARE ==
[~2022-06-12] MED LIST changes: -IOPAMIDOL 370 MG/ML 200 ML INFUS..BTL INJ ONE; -NITROGLYCERIN 0.4 MG SUBL ONE; +REGADENOSON 0.4 MG/5 ML SYR IV ONE; -SODIUM CHLORIDE 0.9% 100 ML ONE; -SODIUM CHLORIDE 0.9% 500ML 500 ML ONE
== END ==
LOC: RAD 08:57
PROVIDERS: ATTEND Internal Medicine Cardiovascular Disease
DX: R06.02 Shortness of breath (principal); I25.10 Atherosclerotic heart disease of native coronary artery without angina pectoris
CPT/HCPCS: 78452; 93017; 93306; A9502; J2785

== ENCOUNTER → 2022-07-03 | Day surgery (SDC) | payer MEDICARE ==
[2022-07-01 13:50] LABS: BASOPHILS % 0.7 % (0.0-1.0); EOSINOPHILS # (AUTO) 0.2 (0.0-0.4); EOSINOPHILS % 3.4 % (0.0-6.0); HEMATOCRIT 42.9 % (34.2-44.1); HEMOGLOBIN 14.1 g/dL (12.0-16.0); LYMPHOCYTES # (AUTO) 1.4 (1.0-3.2); LYMPHOCYTES % 26.4 % (18.0-39.1); MEAN CORPUSCULAR HEMOGLOBIN 30.9 pg (28-32); MEAN CORPUSCULAR HGB CONC 32.9 g/dL (31-35); MEAN CORPUSCULAR VOLUME 93.9 fL (81-99); MONOCYTES # (AUTO) 0.5 (0.2-0.8); MONOCYTES % 8.4 % (4.4-11.3); NEUTROPHILS # (AUTO) 3.3 (2.1-6.9); NEUTROPHILS % 60.9 % (38.7-80.0); PLATELET COUNT 219 x10e3/uL (140-360); RED BLOOD COUNT 4.57 x10e6/uL (3.6-5.1)
[2022-07-01 14:01] LABS: INR 0.95; PROTHROMBIN TIME 13.2 seconds (11.9-14.5)
[2022-07-01 14:09] LABS: ALBUMIN 3.7 g/dL (3.5-5.0); ALBUMIN/GLOBULIN RATIO 1.2 (0.8-2.0); ANION GAP 14.7 mmol/L (8-16); CALCIUM 9.5 mg/dL (8.4-10.2); CHOL/HDL RATIO 5.9 (3.0-3.6); CREATININE, SERUM 1.11 mg/dL (0.57-1.11); POTASSIUM 4.7 mmol/L (3.5-5.1)
[2022-07-03] VITALS (9 sets, daily range): BP systolic 127–156; BP diastolic 54–93
[~2022-07-03] VITALS: Ht 175.3 cm; Wt 62.1 kg
[~2022-07-03] MED LIST changes: +ELIQUIS2.5 MG PO; +FENTANYL CITRATE/PF 100MCG/2 ML INJ ONE; +HEPARIN SOD (PORCINE) 1000 UNIT/ML 30ML ONE; +HEPARIN SOD/SOD CHLORIDE 2,000 ML ONE; +IOPAMIDOL 370 MG/ML 100 ML INFUS..BTL INJ ONE; +LIDOCAINE HCL 2% LOCAL 20 ML VIAL ONE; +LOSARTAN POTASS25 MG PO; +METOPROLOL SUCC25 MG PO; +MIDAZOLAM HCL 2 MG/2 ML VIAL ONE; +NITROGLYCERIN/D5W 200 MCG/ML 250 ML ONE; -REGADENOSON 0.4 MG/5 ML SYR IV ONE; +SODIUM CHLORIDE 0.9% 1000ML 1,000 ML ONE; +SYNTHROID75 MCG PO; +VERAPAMIL HCL 2.5 MG/ML 2 ML VIAL ONE
== END | disposition home or self-care (01) ==
LOC: CATH LAB 08:06
PROVIDERS: ATTEND Internal Medicine Cardiovascular Disease
DX: I25.10 Atherosclerotic heart disease of native coronary artery without angina pectoris (principal); I48.0 Paroxysmal atrial fibrillation; I11.0 Hypertensive heart disease with heart failure; I50.22 Chronic systolic (congestive) heart failure; I25.2 Old myocardial infarction; Z95.0 Presence of cardiac pacemaker; Z95.5 Presence of coronary angioplasty implant and graft; E78.5 Hyperlipidemia, unspecified; I77.9 Disorder of arteries and arterioles, unspecified; E03.9 Hypothyroidism, unspecified; Z01.812 Encounter for preprocedural laboratory examination; Z79.02 Long term (current) use of antithrombotics/antiplatelets; Z79.899 Other long term (current) drug therapy; Z82.49 Family history of ischemic heart disease and other diseases of the circulatory system
CPT/HCPCS: 36415; 80053; 80061; 85025; 85610; 92978; 93458; C1753; C1769; C1887; J1644; J2001; J2250; J3010; J7030; Q9967; 99152; 99153

== ENCOUNTER 2024-04-11 16:05 | Inpatient (IN) | payer MEDICARE ==
[~2024-04-11] VITALS: Ht 175.3 cm; Wt 53.1 kg
[~2024-04-11 16:05] MED LIST changes: -FENTANYL CITRATE/PF 100MCG/2 ML INJ ONE; -HEPARIN SOD (PORCINE) 1000 UNIT/ML 30ML ONE; -HEPARIN SOD/SOD CHLORIDE 2,000 ML ONE; -IOPAMIDOL 370 MG/ML 100 ML INFUS..BTL INJ ONE; -LIDOCAINE HCL 2% LOCAL 20 ML VIAL ONE; -MIDAZOLAM HCL 2 MG/2 ML VIAL ONE; -NITROGLYCERIN/D5W 200 MCG/ML 250 ML ONE; -SODIUM CHLORIDE 0.9% 1000ML 1,000 ML ONE; -VERAPAMIL HCL 2.5 MG/ML 2 ML VIAL ONE
[2024-04-11] MEDS: SODIUM CHLORIDE 0.9% 1000ML 1,000 ML IV SCH (16:58)
[2024-04-11 17:11] LABS: BASOPHILS % 0.5 % (0.0-1.0); EOSINOPHILS # (AUTO) 0.2 (0.0-0.4); EOSINOPHILS % 3.6 % (0.0-6.0); HEMATOCRIT 44.8 % (34.2-44.1); LYMPHOCYTES # (AUTO) 1.3 (1.0-3.2); LYMPHOCYTES % 23.7 % (18.0-39.1); MEAN CORPUSCULAR HEMOGLOBIN 31.5 pg (28-32); MEAN CORPUSCULAR HGB CONC 31.3 g/dL (31-35); MEAN CORPUSCULAR VOLUME 100.9 fL (81-99); MONOCYTES # (AUTO) 0.5 (0.2-0.8); MONOCYTES % 9.3 % (4.4-11.3); NEUTROPHILS # (AUTO) 3.5 (2.1-6.9); NEUTROPHILS % 62.5 % (38.7-80.0); PLATELET COUNT 274 x10e3/uL (140-360); RED BLOOD COUNT 4.44 x10e6/uL (3.6-5.1); RED CELL DISTRIBUTION WIDTH 13.8 % (11.7-14.4); WHITE BLOOD COUNT 5.58 x10e3/uL (4.8-10.8)
[2024-04-11 17:30] LABS: INR 1.01; PROTHROMBIN TIME 13.9 seconds (11.9-14.5)
[2024-04-11 17:31] LABS: PARTIAL THROMBOPLASTIN TIME 29.3 seconds (23.8-35.5)
[2024-04-11 17:37] LABS: ALBUMIN 3.6 g/dL (3.5-5.0); ALBUMIN/GLOBULIN RATIO 1.3 (0.8-2.0); ANION GAP 16.3 mmol/L (8-16); BILIRUBIN,TOTAL 0.6 mg/dL (0.2-1.2); CALCIUM 9.7 mg/dL (8.4-10.2); CREATININE, SERUM 0.98 mg/dL (0.57-1.11); POTASSIUM 4.3 mmol/L (3.5-5.1); TOTAL PROTEIN 6.4 g/dL (6.5-8.1)
[2024-04-11 17:58] LABS: FERRITIN 110.02 ng/mL (4.63-204.00)
[2024-04-11 18:00] VITALS: PULSE 67; RESP 15; TEMP 97.6
[2024-04-11] MEDS ORDERED: COREG3.125 MG PO (18:19)
[2024-04-11 20:00] VITALS: BP 135/83; PULSE 78; RESP 16; TEMP 98.1; O2SAT 100
[2024-04-12] VITALS (8 sets, daily range): BP systolic 123–151; BP diastolic 65–85; PULSE 64–92; RESP 16–18; TEMP 97–98.2; O2SAT 97–100
[2024-04-12] MEDS ORDERED: ACETAMINOPHEN 325 MG TAB PO PRN (10:30)
[2024-04-12] MEDS ORDERED: ONDANSETRON HCL INJ 2MG/ML 2ML 2 MG/ML VIAL IV PRN (10:30)
[2024-04-12] MEDS: ENOXAPARIN SOD INJ 40 MG/0.4 ML SYR SC SCH (10:30)
[2024-04-12] MEDS: CARVEDILOL 3.125 MG TAB PO SCH (14:16)
[2024-04-12] MEDS ORDERED: IOPAMIDOL 370 MG/ML 100 ML INFUS..BTL INJ ONE (14:20)
[2024-04-13 04:00] VITALS: BP 138/75; PULSE 83; RESP 18; TEMP 97.5; O2SAT 98
[2024-04-13] MEDS: LEVOTHYROXINE SODIUM 75 MCG TAB PO SCH (06:00)
[2024-04-13 07:30] VITALS: BP 128/91; PULSE 75; RESP 18; TEMP 97.5; O2SAT 98
[2024-04-13 07:36] LABS: ANION GAP 15.8 mmol/L (8-16); CALCIUM 8.8 mg/dL (8.4-10.2); CREATININE, SERUM 0.82 mg/dL (0.57-1.11); POTASSIUM 3.8 mmol/L (3.5-5.1)
[2024-04-13 07:56] LABS: MAGNESIUM 1.7 MG/DL (1.3-2.1)
[2024-04-13 08:21] LABS: THYROID STIMULATING HORMONE 4.799 uIU/mL (0.350-4.940)
[2024-04-13] MEDS: LOSARTAN POTASSIUM 25 MG TAB PO SCH (08:40)
[2024-04-13 09:12] VITALS: BP 128/91; PULSE 75; RESP 18; TEMP 97.6; O2SAT 96
[2024-04-13 12:47] VITALS: BP 126/72; PULSE 110; RESP 16; TEMP 97.4; O2SAT 100
[2024-04-13 20:40] VITALS: BP 129/76; PULSE 80; RESP 17; TEMP 97.5; O2SAT 100
[2024-04-13 21:00] VITALS: BP 129/76; PULSE 79; RESP 18; TEMP 97.6; O2SAT 98
[2024-04-14] VITALS (8 sets, daily range): BP systolic 104–132; BP diastolic 55–84; PULSE 72–86; RESP 16–18; TEMP 97.6–98.3; O2SAT 99–100
[2024-04-14] MEDS ORDERED: ETOMIDATE 40 MG/ 20ML VIAL IV ONE (10:26)
[2024-04-14] MEDS ORDERED: ESMOLOL HCL 100MG/10ML 10 MG/ML VIAL ONE (10:56)
[2024-04-14] MEDS ORDERED: LIDOCAINE HCL 2% LOCAL INJ 5 ML SDV VIAL INJ ONE (11:00)
[2024-04-14] MEDS: ONDANSETRON HCL INJ 2MG/ML 2ML 2 MG/ML VIAL ONE (11:42)
[2024-04-15 03:30] VITALS: BP 119/68; PULSE 87; RESP 18; TEMP 97.6; O2SAT 99
[2024-04-15 08:00] VITALS: BP 119/69; PULSE 73; RESP 17; TEMP 98.1; O2SAT 99
[2024-04-15 12:00] VITALS: BP 100/56; PULSE 74; RESP 18; TEMP 97.4; O2SAT 100
[2024-04-15 12:03] VITALS: BP 119/69; PULSE 73
[2024-04-15] MEDS ORDERED: PANTOPRAZOLE SO40 MG PO (13:29)
[2024-04-15] MEDS ORDERED: CARAFATE1 GM PO (13:31)
[2024-04-15] MEDS ORDERED: REMERON15 MG PO (13:32)
== END 2024-04-15 15:05 | disposition home or self-care (01) | DRG 391 ==
LOC: ER 16:17 → ERHOLD 17:03 → MED/SURG3 18:12 → OBSVTOIN 04-12 10:25
PROVIDERS: ADMIT Internal Medicine; ATTEND Internal Medicine
PROC: 0DB78ZX Excision of Stomach, Pylorus, Via Natural or Artificial Opening Endoscopic, Diagnostic (ICD-10-PCS; 2024-04-14)
PROC: 0D738ZZ Dilation of Lower Esophagus, Via Natural or Artificial Opening Endoscopic (ICD-10-PCS; principal; 2024-04-14 10:50)
DX: R13.10 Dysphagia, unspecified (principal); E43 Unspecified severe protein-calorie malnutrition; Z68.1 Body mass index [BMI] 19.9 or less, adult; I50.22 Chronic systolic (congestive) heart failure; K44.9 Diaphragmatic hernia without obstruction or gangrene; R62.7 Adult failure to thrive; I11.0 Hypertensive heart disease with heart failure; E86.0 Dehydration; K29.70 Gastritis, unspecified, without bleeding; R63.4 Abnormal weight loss; I25.10 Atherosclerotic heart disease of native coronary artery without angina pectoris; K21.00 Gastro-esophageal reflux disease with esophagitis, without bleeding; R68.81 Early satiety; E03.9 Hypothyroidism, unspecified; R63.0 Anorexia; I48.0 Paroxysmal atrial fibrillation; K31.84 Gastroparesis; J44.9 Chronic obstructive pulmonary disease, unspecified; N26.1 Atrophy of kidney (terminal); R91.1 Solitary pulmonary nodule; Z79.890 Hormone replacement therapy; Z79.01 Long term (current) use of anticoagulants; Z79.02 Long term (current) use of antithrombotics/antiplatelets; Z95.5 Presence of coronary angioplasty implant and graft; Z95.0 Presence of cardiac pacemaker; Z88.2 Allergy status to sulfonamides; Z90.49 Acquired absence of other specified parts of digestive tract
CPT/HCPCS: 36415; 43235; 71260; 74177; 80048; 80053; 82607; 82728; 83036; 83540; 83735; 84443; 84466; 85025; 85610; 85730; 88305; 93306; 99284; G0378; J1650; J2003; J2405; J2470; J7030; Q9967

== ENCOUNTER 2024-05-27 22:43 | Emergency (ER) | payer MEDICARE ==
[~2024-05-27] VITALS: Ht 175.3 cm; Wt 54.9 kg
[~2024-05-27 22:43] MED LIST changes: +CARAFATE1 GM PO; +COREG3.125 MG PO; +PANTOPRAZOLE SO40 MG PO; +REMERON15 MG PO
[2024-05-27 23:00] VITALS: PULSE 97; RESP 17; TEMP 97.6
[2024-05-28] MEDS ORDERED: CEPHALEXIN500 MG PO (01:00)
[2024-05-28 01:07] VITALS: BP 158/103; PULSE 85; RESP 16; TEMP 98.1; O2SAT 97
== END 2024-05-28 01:15 | disposition home or self-care (01) ==
LOC: ER 22:52
DX: S51.811A Laceration without foreign body of right forearm, initial encounter (principal); S00.31XA Abrasion of nose, initial encounter; W01.0XXA Fall on same level from slipping, tripping and stumbling without subsequent striking against object, initial encounter; Y93.01 Activity, walking, marching and hiking; Y92.22 Religious institution as the place of occurrence of the external cause; I10 Essential (primary) hypertension
CPT/HCPCS: 70450; 70486; 99283

== ENCOUNTER 2024-07-14 10:14 | Inpatient (IN) | payer MEDICARE ==
[~2024-07-14] VITALS: Ht 175.3 cm; Wt 52.2 kg
[~2024-07-14 10:14] MED LIST changes: +CEPHALEXIN500 MG PO
[2024-07-14 10:41] LABS: BASOPHILS % 0.4 % (0.0-1.0); EOSINOPHILS # (AUTO) 0.1 (0.0-0.4); EOSINOPHILS % 1.6 % (0.0-6.0); HEMATOCRIT 46.2 % (34.2-44.1); HEMOGLOBIN 15.6 g/dL (12.0-16.0); LYMPHOCYTES # (AUTO) 1.1 (1.0-3.2); LYMPHOCYTES % 15.7 % (18.0-39.1); MEAN CORPUSCULAR HEMOGLOBIN 30.8 pg (28-32); MEAN CORPUSCULAR HGB CONC 33.8 g/dL (31-35); MEAN CORPUSCULAR VOLUME 91.1 fL (81-99); MONOCYTES # (AUTO) 0.7 (0.2-0.8); MONOCYTES % 10.7 % (4.4-11.3); NEUTROPHILS # (AUTO) 4.8 (2.1-6.9); NEUTROPHILS % 71.3 % (38.7-80.0); PLATELET COUNT 280 x10e3/uL (140-360); RED BLOOD COUNT 5.07 x10e6/uL (3.6-5.1); RED CELL DISTRIBUTION WIDTH 13.2 % (11.7-14.4); WHITE BLOOD COUNT 6.75 x10e3/uL (4.8-10.8)
[2024-07-14] MEDS ORDERED: SODIUM CHLORIDE FLUSH 10 ML SYR IV PRN (10:45)
[2024-07-14] MEDS: ASPIRIN 81 MG CHEW TAB PO ONE (10:49)
[2024-07-14 11:13] LABS: ALBUMIN 4.1 g/dL (3.5-5.0); ALBUMIN/GLOBULIN RATIO 1.2 (0.8-2.0); ANION GAP 19.9 mmol/L (8-16); BILIRUBIN,TOTAL 1.2 mg/dL (0.2-1.2); CALCIUM 9.9 mg/dL (8.4-10.2); CREATININE, SERUM 1.21 mg/dL (0.57-1.11); POTASSIUM 3.9 mmol/L (3.5-5.1); TOTAL PROTEIN 7.4 g/dL (6.5-8.1)
[2024-07-14 11:19] LABS: TROPONIN I 0.01 ng/mL (0-0.300)
[2024-07-14] MEDS ORDERED: ONDANSETRON HCL INJ 2MG/ML 2ML 2 MG/ML VIAL IV PRN (12:30)
[2024-07-14] MEDS ORDERED: SODIUM CHLORIDE FLUSH 10 ML SYR INJ PRN (12:30)
[2024-07-14 14:00] VITALS: PULSE 93; RESP 18; TEMP 98.2
[2024-07-14 17:08] VITALS: BP 132/89; PULSE 102; RESP 20; TEMP 97.6; O2SAT 99
[2024-07-14 18:30] VITALS: BP 132/89; PULSE 102; RESP 20; TEMP 97.6; O2SAT 99
[2024-07-14] MEDS ORDERED: METOCLOPRAMIDE10 MG PO (19:47)
[2024-07-14 21:00] VITALS: BP 133/78; PULSE 60; RESP 18; TEMP 98; O2SAT 99
[2024-07-15] VITALS (9 sets, daily range): BP systolic 108–144; BP diastolic 61–91; PULSE 68–92; RESP 17–20; TEMP 97.4–98.2; O2SAT 96–100
[2024-07-15 05:51] LABS: BASOPHILS % 0.9 % (0.0-1.0); EOSINOPHILS # (AUTO) 0.1 (0.0-0.4); EOSINOPHILS % 2.1 % (0.0-6.0); HEMATOCRIT 42.7 % (34.2-44.1); HEMOGLOBIN 14.1 g/dL (12.0-16.0); LYMPHOCYTES # (AUTO) 1.4 (1.0-3.2); LYMPHOCYTES % 32.2 % (18.0-39.1); MEAN CORPUSCULAR HEMOGLOBIN 30.8 pg (28-32); MEAN CORPUSCULAR VOLUME 93.2 fL (81-99); MONOCYTES # (AUTO) 0.6 (0.2-0.8); MONOCYTES % 14.3 % (4.4-11.3); NEUTROPHILS # (AUTO) 2.2 (2.1-6.9); NEUTROPHILS % 50.3 % (38.7-80.0); PLATELET COUNT 241 x10e3/uL (140-360); RED BLOOD COUNT 4.58 x10e6/uL (3.6-5.1); WHITE BLOOD COUNT 4.35 x10e3/uL (4.8-10.8)
[2024-07-15 06:22] LABS: ALBUMIN 3.4 g/dL (3.5-5.0); ALBUMIN/GLOBULIN RATIO 1.3 (0.8-2.0); ANION GAP 15.6 mmol/L (8-16); CALCIUM 8.9 mg/dL (8.4-10.2); CREATININE, SERUM 1.06 mg/dL (0.57-1.11); POTASSIUM 3.6 mmol/L (3.5-5.1); TOTAL PROTEIN 6.1 g/dL (6.5-8.1)
[2024-07-15 06:46] LABS: TROPONIN I 0.007 ng/mL (0-0.300)
[2024-07-15] MEDS: FUROSEMIDE INJ 10 MG/ML 4 ML VIAL IV SCH (08:17)
[2024-07-15] MEDS: METOPROLOL TARTRATE 25 MG TAB PO SCH (08:17)
[2024-07-15] MEDS ORDERED: ALBUTEROL/IPRATROPIUM 3 ML NEB NEB PRN (09:45)
[2024-07-15] MEDS ORDERED: METOPROLOL TARTRATE INJ 1 MG/ML VIAL IV PRN (09:45)
[2024-07-15] MEDS ORDERED: ACETAMINOPHEN 325 MG TAB PO PRN (09:45)
[2024-07-15] MEDS ORDERED: MELATONIN 3 MG TAB PO PRN (09:45)
[2024-07-15 15:37] LABS: TROPONIN I 0.004 ng/mL (0-0.300)
[2024-07-15] MEDS: APIXABAN 2.5 MG TABLET PO SCH (16:45)
[2024-07-16] VITALS (10 sets, daily range): BP systolic 102–137; BP diastolic 55–70; PULSE 46–92; RESP 16–21; TEMP 96.5–98.2; O2SAT 95–100
[2024-07-16 05:58] LABS: BASOPHILS % 0.6 % (0.0-1.0); EOSINOPHILS # (AUTO) 0.1 (0.0-0.4); EOSINOPHILS % 2.1 % (0.0-6.0); HEMATOCRIT 45.2 % (34.2-44.1); HEMOGLOBIN 15.2 g/dL (12.0-16.0); LYMPHOCYTES # (AUTO) 2.3 (1.0-3.2); LYMPHOCYTES % 33.8 % (18.0-39.1); MEAN CORPUSCULAR HEMOGLOBIN 30.8 pg (28-32); MEAN CORPUSCULAR HGB CONC 33.6 g/dL (31-35); MEAN CORPUSCULAR VOLUME 91.7 fL (81-99); MONOCYTES # (AUTO) 0.8 (0.2-0.8); NEUTROPHILS # (AUTO) 3.5 (2.1-6.9); NEUTROPHILS % 51.2 % (38.7-80.0); PLATELET COUNT 272 x10e3/uL (140-360); RED BLOOD COUNT 4.93 x10e6/uL (3.6-5.1); RED CELL DISTRIBUTION WIDTH 13.2 % (11.7-14.4); WHITE BLOOD COUNT 6.81 x10e3/uL (4.8-10.8)
[2024-07-16 06:41] LABS: ANION GAP 18.8 mmol/L (8-16); CALCIUM 9.5 mg/dL (8.4-10.2); CREATININE, SERUM 1.29 mg/dL (0.57-1.11); POTASSIUM 3.8 mmol/L (3.5-5.1)
[2024-07-16] MEDS: LEVOTHYROXINE SODIUM 75 MCG TAB PO SCH (06:42)
[2024-07-16] MEDS: METOPROLOL TARTRATE 25 MG TAB PO SCH (17:00)
[2024-07-17] VITALS (9 sets, daily range): BP systolic 104–137; BP diastolic 56–84; PULSE 64–86; RESP 16–18; TEMP 97.3–97.7; O2SAT 94–99
[2024-07-17 06:17] LABS: BASOPHILS % 0.6 % (0.0-1.0); EOSINOPHILS # (AUTO) 0.2 (0.0-0.4); EOSINOPHILS % 2.8 % (0.0-6.0); HEMATOCRIT 46.2 % (34.2-44.1); HEMOGLOBIN 15.5 g/dL (12.0-16.0); LYMPHOCYTES # (AUTO) 2.3 (1.0-3.2); LYMPHOCYTES % 33.9 % (18.0-39.1); MEAN CORPUSCULAR HEMOGLOBIN 30.6 pg (28-32); MEAN CORPUSCULAR HGB CONC 33.5 g/dL (31-35); MEAN CORPUSCULAR VOLUME 91.3 fL (81-99); MONOCYTES # (AUTO) 0.8 (0.2-0.8); MONOCYTES % 11.6 % (4.4-11.3); NEUTROPHILS # (AUTO) 3.5 (2.1-6.9); PLATELET COUNT 279 x10e3/uL (140-360); RED BLOOD COUNT 5.06 x10e6/uL (3.6-5.1); RED CELL DISTRIBUTION WIDTH 13.1 % (11.7-14.4); WHITE BLOOD COUNT 6.81 x10e3/uL (4.8-10.8)
[2024-07-17 06:47] LABS: ANION GAP 19.1 mmol/L (8-16); CALCIUM 9.9 mg/dL (8.4-10.2); CREATININE, SERUM 1.43 mg/dL (0.57-1.11); POTASSIUM 4.1 mmol/L (3.5-5.1)
[2024-07-17] MEDS ORDERED: FUROSEMIDE INJ 10 MG/ML 4 ML VIAL IV SCH (17:00)
[2024-07-18 04:23] VITALS: BP 132/92; PULSE 92; RESP 18; TEMP 98.1; O2SAT 98
[2024-07-18 06:16] LABS: ANION GAP 16.4 mmol/L (8-16); CALCIUM 9.4 mg/dL (8.4-10.2); CREATININE, SERUM 1.19 mg/dL (0.57-1.11)
[2024-07-18 06:19] LABS: POTASSIUM 3.4 mmol/L (3.5-5.1)
[2024-07-18 07:31] VITALS: PULSE 72; RESP 16; O2SAT 96
[2024-07-18 08:00] VITALS: BP 118/77; PULSE 62; RESP 16; TEMP 97.3; O2SAT 98
[2024-07-18 09:54] VITALS: BP 118/77; PULSE 62; RESP 16; TEMP 97.3; O2SAT 98
[2024-07-18] MEDS ORDERED: FUROSEMIDE20 MG PO (10:25)
[2024-07-18] MEDS ORDERED: LOPRESSOR25 MG PO (10:25)
[2024-07-18 11:44] VITALS: BP 114/62; PULSE 68; RESP 17; TEMP 97.4; O2SAT 97
== END 2024-07-18 13:10 | disposition home or self-care (01) | DRG 291 ==
LOC: ER 10:20 → ERHOLD 12:20 → MED/SURG3 14:34 → OBSVTOIN 07-15 09:50
PROVIDERS: ADMIT Internal Medicine; ATTEND Internal Medicine
DX: I13.0 Hypertensive heart and chronic kidney disease with heart failure and stage 1 through stage 4 chronic kidney disease, or unspecified chronic kidney disease (principal); I50.23 Acute on chronic systolic (congestive) heart failure; N17.9 Acute kidney failure, unspecified; R63.6 Underweight; Z68.1 Body mass index [BMI] 19.9 or less, adult; Z79.01 Long term (current) use of anticoagulants; N18.30 Chronic kidney disease, stage 3 unspecified; I25.10 Atherosclerotic heart disease of native coronary artery without angina pectoris; I48.0 Paroxysmal atrial fibrillation; E03.9 Hypothyroidism, unspecified; E78.5 Hyperlipidemia, unspecified; Z79.890 Hormone replacement therapy; Z86.73 Personal history of transient ischemic attack (TIA), and cerebral infarction without residual deficits; Z95.5 Presence of coronary angioplasty implant and graft; Z95.810 Presence of automatic (implantable) cardiac defibrillator; Z90.49 Acquired absence of other specified parts of digestive tract; Z90.710 Acquired absence of both cervix and uterus; Z88.2 Allergy status to sulfonamides
CPT/HCPCS: 36415; 71045; 80048; 80053; 82550; 83880; 84484; 85025; 93005; 94760; 94799; 99284; G0378; J1938

== ENCOUNTER 2024-12-29 06:33 | Emergency (ER) | payer MEDICARE ==
[~2024-12-29] VITALS: Ht 175.3 cm; Wt 49.9 kg
[~2024-12-29 06:33] MED LIST changes: +FUROSEMIDE20 MG PO; +LOPRESSOR25 MG PO; +METOCLOPRAMIDE10 MG PO
[2024-12-29 06:35] VITALS: TEMP 97.6
[2024-12-29] MEDS ORDERED: CEFDINIR300 MG PO (07:33)
[2024-12-29 07:35] LABS: LEUKOCYTE ESTERASE ,URINE LARGE (NEGATIVE); PROTEIN,URINE DIPSTICK TRACE (NEGATIVE)
[2024-12-29 07:36] LABS: URINE UROBILINOGEN 0.2 mg/dL (0.2 - 1)
[2024-12-29 07:38] VITALS: PULSE 70; RESP 16
[2024-12-29 07:56] LABS: EPITHELIAL CELLS,URINE FEW /LPF; WBC,URINE (MAN) >50 /HPF (0-5)
[2024-12-29 09:13] VITALS: BP 115/63; PULSE 70; RESP 18; O2SAT 98
== END 2024-12-29 09:10 | disposition home or self-care (01) ==
LOC: ER 06:36
DX: R33.9 Retention of urine, unspecified (principal); N39.0 Urinary tract infection, site not specified; I10 Essential (primary) hypertension; I48.91 Unspecified atrial fibrillation; E78.5 Hyperlipidemia, unspecified; E03.9 Hypothyroidism, unspecified; Z95.810 Presence of automatic (implantable) cardiac defibrillator; Z95.5 Presence of coronary angioplasty implant and graft
CPT/HCPCS: 51702; 81001; 87086; 99284; J0696; 51700

== ENCOUNTER 2025-01-05 14:45 | Emergency (ER) | payer MEDICARE ==
[~2025-01-05] VITALS: Ht 175.3 cm; Wt 49.9 kg
[~2025-01-05 14:45] MED LIST changes: +CEFDINIR300 MG PO
[2025-01-05 15:00] VITALS: TEMP 97.9
[2025-01-05 17:05] VITALS: PULSE 70; RESP 16; O2SAT 100
== END 2025-01-05 18:08 | disposition home or self-care (01) ==
LOC: MERGE 16:15 → ER 16:15
DX: R33.9 Retention of urine, unspecified (principal); I10 Essential (primary) hypertension; I50.9 Heart failure, unspecified; I48.91 Unspecified atrial fibrillation; E03.9 Hypothyroidism, unspecified; Z95.810 Presence of automatic (implantable) cardiac defibrillator
CPT/HCPCS: 51700; 99283